=== PATIENT | female | born 1995 | race Caucasian/White ===

== ENCOUNTER 2017-11-24 16:42 | Emergency (ER) | payer OTHER ==
--- NOTE | 2017-11-24 16:45 | PDOC ---
Rapid Medical Evaluation Time Seen by Provider: 11/24/17 16:44 Medical Evaluation: Allergies Allergy/AdvReac Type Severity Reaction Status Date / Time No Known Allergies Allergy Verified 08/23/16 03:01 11/24/17 16:44 The patient presents with a chief complaint of: foot injury I have performed a brief in-person evaluation of this patient. Pertinent physical exam findings: vss, ambulatory I have ordered the following: labs, xray, pain meds The patient will proceed to the ED for further evaluation. 11/24/17 16:47
[2017-11-24] MEDS ORDERED: IBUPROFEN 600 MG TABLET (FP) PO ONE ×2 (16:46→17:14)
[2017-11-24 16:52] VITALS: BP 137/57; PULSE 86; TEMP 98; BMI 33.9
[2017-11-24] MEDS ORDERED: DIPHTH,PERTUSS(ACELL),TET 0.5 ML DISP.SYRIN IM ONE (17:12)
--- NOTE | 2017-11-24 17:19 | PDOC ---
History of Present Illness - General Chief Complaint: Injury Stated Complaint: LACERATION TO TOE Time Seen by Provider: 11/24/17 16:44 History Source: Patient Exam Limitations: No Limitations - History of Present Illness Initial Comments: 11/24/17 17:18 This is a 22-year-old woman without a past medical history of presents to emergency department with right fifth toe pain and laceration status post getting caught on a broken bed. Patient states she was on the bed with some children that were jumping up and down where she heard a crack she was resting with her foot between the mattress and the bedframe. Suddenly the bed shifted positions catching her foot between the frame of the bed. Patient states she does not know her last tetanus shot. Past History - Past Medical History Allergies/Adverse Reactions: Allergies Allergy/AdvReac Type Severity Reaction Status Date / Time No Known Allergies Allergy Verified 11/24/17 16:45 Home Medications: Ambulatory Orders NK [No Known Home Medication] 11/24/17 Asthma: Yes Cancer: No Cardiac Disorders: No COPD: No Diabetes: No HTN: No Psychiatric Problems: Yes (depression) Seizures: No Thyroid Disease: No - Immunization History Immunization Up to Date: Yes - Suicide/Smoking/Psychosocial Hx Smoking Status: Yes Smoking History: Never smoked Have you smoked in the past 12 months: Yes Number of Cigarettes Smoked Daily: 20 Cigars Per Day: 0 Information on smoking cessation initiated: Yes Hx Alcohol Use: No Drug/Substance Use Hx: No Substance Use Type: None Hx Substance Use Treatment: No Review of Systems - Review of Systems Able to Perform ROS?: Yes Is the patient limited Spanish proficient: No Constitutional: No: Symptoms Reported HEENTM: No: Symptoms Reported Respiratory: No: Symptoms reported Cardiac (ROS): No: Symptoms Reported ABD/GI: No: Symptoms Reported : No: Symptoms Reported Musculoskeletal: Yes: See HPI Integumentary: Yes: See HPI Neurological: No: Symptoms reported *Physical Exam - Vital Signs Last Vital Signs Temp Pulse Resp BP Pulse Ox 98.0 F 86 18 137/57 100 11/24/17 16:45 11/24/17 16:45 11/24/17 16:45 11/24/17 16:45 11/24/17 16:45 - Physical Exam General Appearance: Yes: Appropriately Dressed. No: Apparent Distress HEENT: positive: Normal ENT Inspection Neck: positive: Trachea midline, Supple Respiratory/Chest: positive: Lungs Clear, Normal Breath Sounds. negative: Respiratory Distress, Accessory Muscle Use Cardiovascular: positive: Regular Rhythm, Regular Rate. negative: Murmur Gastrointestinal/Abdominal: positive: Normal Bowel Sounds, Soft. negative: Tender Musculoskeletal: positive: Normal Inspection. negative: CVA Tenderness Extremity: positive: Swelling (right fifth toe), Other (6 cm curved superficial laceration to the anterior lateral aspect of the right fifth toe) Integumentary: positive: Other (6 cm curved superficial laceration to the anterior lateral aspect of the right fifth toe) Neurologic: positive: Alert, Normal Response, Motor Strength 5/5 Procedures - Consent Consent obtained: Verbal, From Patient - Laceration/Wound Repair Right Lateral Toe 5th digit Wound Length: 5.0 to 7.5 cm Wound Explored: clean Wound's Depth, Shape: superficial Irrigated w/ Saline: Yes Betadine Prep: Yes Anesthesia: 1% Lidocaine Amount of Anesthetic (ccs): 3 Wound Debrided: minimal Wound Repaired With: Sutures Suture Size/Type: 6:0 Number of Sutures: 5 Layer Closure: No Sterile Dressing Applied: Yes Progress: 11/24/17 18:28 patient tolerated well ED Treatment Course - ADDITIONAL ORDERS Additional order review: Laboratory Results 11/24/17 16:54 Urine HCG, Qual Negative Medical Decision Making - Medical Decision Making 11/24/17 17:21 A/P: 22-year-old female with right fifth toe laceration and pain status post furniture breaking 6 cm curved superficial laceration to the dorsal lateral aspect of the fifth toe Swelling presents to the right fifth toe No crepitus or deformity present on palpation Laceration; soft tissue injury versus fracture Urine test X-ray of right foot Motrin Tetanus shot Lac repair if no fractures are noted 11/24/17 18:28 X-rays read by me: No fracture or dislocation noted. I'll perform laceration repair. See procedure note for details *DC/Admit/Observation/Transfer Diagnosis at time of Disposition: Laceration - Discharge Dispostion Disposition: HOME Condition at time of disposition: Stable Admit: No - Referrals Referrals: Get Bai MD [Primary Care Provider] - - Patient Instructions Additional Instructions: Keep wound dry for the next 24 hours. After the first 24 hours you make wash the wound gently. Do not scrub the wound. You may apply antibiotic ointment to wound 3 times a day. Only apply a thin layer to the wound. Return to have the sutures removed next Friday 12/01 or on 12/04. Return to ER sooner if you experience fevers, redness, increased pain, streaking up the leg, or any other concerns. - Post Discharge Activity
== END 2017-11-24 18:27 | disposition home or self-care (01) ==
LOC: JER 16:42
PROC: 3E0234Z Introduction of Serum, Toxoid and Vaccine into Muscle, Percutaneous Approach (ICD-10-PCS; principal; 2017-11-24)
PROC: 0HQMXZZ Repair Right Foot Skin, External Approach (ICD-10-PCS; 2017-11-24)
DX: S91.114A Laceration without foreign body of right lesser toe(s) without damage to nail, initial encounter (principal); W23.0XXA Caught, crushed, jammed, or pinched between moving objects, initial encounter; Y93.89 Activity, other specified; Y92.032 Bedroom in apartment as the place of occurrence of the external cause; Y99.8 Other external cause status
CPT/HCPCS: 12002; 73630-TC-RT-FY; 84703; 90471; 90715; 99282-25

== ENCOUNTER 2017-12-01 09:57 | Emergency (ER) | payer OTHER ==
[2017-12-01 10:15] VITALS: BP 152/68; PULSE 65; TEMP 98.2; BMI 31.0
--- NOTE | 2017-12-01 10:42 | PDOC ---
Suture Removal/Wound Check HPI - History of Present Illness Chief Complaint: Suture/Staple Removal(Here) Stated Complaint: STAPLE/SUTURE REMOVAL Time Seen by Provider: 12/01/17 10:24 History Source: Yes: Patient Exam Limitations: Yes: No Limitations Treated at: [facility] [place] Date of Last ED visit: 11/24/17 - Previous ED Treatment Tetanus Immunization: Yes: Given at last ED visit - Onset of Previous Treatment Date of Occurence: 11/24/17 Past History - Past Medical History Allergies/Adverse Reactions: Allergies Allergy/AdvReac Type Severity Reaction Status Date / Time No Known Allergies Allergy Verified 12/01/17 10:13 Home Medications: Ambulatory Orders NK [No Known Home Medication] 11/24/17 Asthma: Yes Cancer: No Cardiac Disorders: No COPD: No DVT: No Diabetes: No HTN: No Psychiatric Problems: Yes (depression) Seizures: No Thyroid Disease: No - Immunization History Immunization Up to Date: Yes - Suicide/Smoking/Psychosocial Hx Smoking Status: Yes Smoking History: Current every day smoker Have you smoked in the past 12 months: Yes Number of Cigarettes Smoked Daily: 20 Cigars Per Day: 0 Information on smoking cessation initiated: Yes 'Breaking Loose' booklet given: 12/01/17 Hx Alcohol Use: No Drug/Substance Use Hx: No Substance Use Type: None Hx Substance Use Treatment: No Medical Decision Making - Medical Decision Making A/P: 5 stitches removed from right 5th toe. Margins well approximated. No surrounding erythema or streaking. Sutured skin is necrotic but remains in place. Sensory intact in affected extremity. Patient made aware that necrotic skin will fall of on its own. *DC/Admit/Observation/Transfer Diagnosis at time of Disposition: Encounter for removal of sutures - Discharge Dispostion Disposition: HOME Condition at time of disposition: Good - Referrals Referrals: Get Bai MD [Primary Care Provider] - - Patient Instructions Printed Discharge Instructions: DI for Suture Removal - Post Discharge Activity
== END 2017-12-01 10:49 | disposition home or self-care (01) ==
LOC: JERFT 09:57
DX: Z48.02 Encounter for removal of sutures (principal)
CPT/HCPCS: 99281-25

== ENCOUNTER 2020-02-17 21:06 | Emergency (ER) | payer OTHER ==
[2020-02-17 21:27] VITALS: BP 110/78; PULSE 76; TEMP 99.3; BMI 29.6
[2020-02-17] MEDS ORDERED: ACETAMINOPHEN 500 MG TABLET (FP) PO ONE (23:10)
[2020-02-17] MEDS ORDERED: ACETAMINOPHEN 325 MG TABLET (FP) ONE ×2 (23:17→23:52)
[2020-02-18 00:41] LABS: BASO % 0.4 % (0-2.0); EOS % 1.1 % (0-4.5); HEMATOCRIT 39.4 % (32.4-45.2); HEMOGLOBIN 13.3 GM/dL (10.7-15.3); LYMPH % 31.9 % (8-40); MCH 31.8 pg (25.7-33.7); MCHC 33.6 g/dl (32.0-36.0); MEAN CELL VOLUME 94.6 fl (80-96); MEAN PLT VOLUME 10.3 fl (7.5-11.1); MONO % 5.9 % (3.8-10.2); NEUT % 60.7 % (42.8-82.8); PLATELET COUNT 190 K/MM3 (134-434); RBC 4.17 M/mm3 (3.60-5.2); RDW 13.2 % (11.6-15.6); WHITE BLOOD COUNT 13.4 K/mm3 (4.0-10.0)
[2020-02-18 01:09] LABS: BILIRUBIN,TOTAL 0.6 mg/dL (0.2-1); BLOOD UREA NITROGEN 13.3 mg/dL (7-18); CALCIUM 8.7 mg/dL (8.5-10.1); CREATININE 0.7 mg/dL (0.55-1.3); POTASSIUM 3.9 mmol/L (3.5-5.1); TOT PROT 7.4 g/dl (6.4-8.2)
== END 2020-02-18 02:27 | disposition home or self-care (01) ==
LOC: JER 21:06
DX: N64.4 Mastodynia (principal)
CPT/HCPCS: 36415; 71046-TC-FY; 76817-TC; 80053; 84702; 84703; 85025; 93005; 93010; 99284-25

== ENCOUNTER 2020-02-27 06:56 | Emergency (ER) | payer OTHER ==
[2020-02-27 07:12] VITALS: TEMP 97.8; BMI 29.6
[2020-02-27] MEDS ORDERED: ACETAMINOPHEN 1000 MG/100 ML VIAL (NON FORMULARY) IVPB ONE (08:00)
[2020-02-27] MEDS ORDERED: LACTATED RINGERS SOLUTION 1000 ML INFUS.BAG IV ONE (08:00)
[2020-02-27] MEDS ORDERED: METOCLOPRAMIDE HCL INJECTION 10 MG/2 ML VIAL IVPUSH ONE (08:00)
[2020-02-27] MEDS ORDERED: METOCLOPRAMIDE HCL INJECTION 10 MG/2 ML VIAL ONE (08:10)
[2020-02-27] MEDS ORDERED: ACETAMINOPHEN INJECTION 100 ML IVPB ONE (08:10)
--- NOTE | 2020-02-27 08:18 | PDOC ---
Attending Attestation - Resident Resident Name: Dayron Wood - ED Attending Attestation I have performed the following: I have examined & evaluated the patient, The case was reviewed & discussed with the resident, I agree w/resident's findings & plan, Exceptions are as noted - HPI HPI: 24 yo currently approx 7 WGA based on LMP presenting with nausea, multiple episodes of vomiting followed by throbbing headache this AM. She states the nausea woke her from sleep. She has had similar headaches in the past. - Physicial Exam PE: GENERAL: Awake, alert, and fully oriented, in no acute distress HEAD: No signs of trauma EYES: PERRLA, EOMI, sclera anicteric, conjunctiva clear ENT: Auricles normal inspection, hearing grossly normal, nares patent, oropharynx clear without exudates. Dry mucosa NECK: Normal ROM, supple, no lymphadenopathy, JVD, or masses LUNGS: Breath sounds equal, clear to auscultation bilaterally. No wheezes, and no crackles HEART: Regular rate and rhythm, normal S1 and S2, no murmurs, rubs or gallops ABDOMEN: Soft, nontender, normoactive bowel sounds. No guarding, no rebound. No masses EXTREMITIES: Normal range of motion, no edema. No clubbing or cyanosis. No co rds, erythema, or tenderness NEUROLOGICAL: Cranial nerves II through XII grossly intact. Normal speech, normal gait. Motor and sensation intact SKIN: Warm, dry, normal turgor, no rashes or lesions noted. - Medical Decision Making Pt with multiple episodes of vomiting, no signs of acute abdomen. Will give IV fluids, antiemetics. Discharge - Discharge Information Problems reviewed: Yes Clinical Impression/Diagnosis: Nausea & vomiting Qualifiers: Vomiting type: unspecified Vomiting Intractability: non-intractable Qualified Code(s): R11.2 - Nausea with vomiting, unspecified Condition: Stable Disposition: HOME - Additional Discharge Information Prescriptions: Ondansetron [Zofran *Odt*] 4 mg SL BID #10 od.tablet - Follow up/Referral Referrals: Get Bai MD [Primary Care Provider] - - Patient Discharge Instructions Patient Printed Discharge Instructions: DI for Vomiting -- Adult Additional Instructions: You were seen in the ER for nausea, vomiting. Your symptoms improved with medication. Your urine did not show signs of infection. Be sure to follow up with your studio model as soon as possible, in the next 1-2 days. Return to the ER if you develop high fevers, vision changes, weakness, confusion, chest pain, or trouble breathing. - Post Discharge Activity
--- NOTE | 2020-02-27 08:18 | PDOC ---
History of Present Illness - General Chief Complaint: Nausea/Vomiting Stated Complaint: VOMITING/7WKS Time Seen by Provider: 02/27/20 07:43 History Source: Patient - History of Present Illness Initial Comments: 02/27/20 08:12 24F @ approx 7 weeks gestation (LMP 01/10/20) p/w acute onset nausea, vomiting, headache this AM. She reports waking up with nausea, and x8 [id number] vomiting. She reports headache similar to prior migraines, localized to the R forehead, non-radiating, no tear production, vision changes, or associated weakness. identified in ED last week after presentation for breast pain, has been unable to follow up with student education specialist since then. Past History - Medical History Allergies/Adverse Reactions: Allergies Allergy/AdvReac Type Severity Reaction Status Date / Time No Known Allergies Allergy Verified 02/27/20 07:11 Home Medications: Ambulatory Orders Ondansetron [Zofran *Odt*] 4 mg SL BID #10 od.tablet 02/27/20 Asthma: Yes Cancer: No Cardiac Disorders: No COPD: No DVT: No Diabetes: No HTN: No Psychiatric Problems: Yes (depression) Seizures: No Thyroid Disease: No Other medical history: migraines - Immunization History Immunization Up to Date: Yes - Psycho-Social/Smoking History Smoking Status: Yes Smoking History: Current every day smoker Have you smoked in the past 12 months: Yes Number of Cigarettes Smoked Daily: 20 Cigars Per Day: 0 Information on smoking cessation initiated: No 'Breaking Loose' booklet given: 12/01/17 - Substance Abuse Hx (Audit-C & DAST Scrn) How often the patient has a drink containing alcohol: Never Score: In Men: 4 or > Positive; In Women: 3 or > Positive: 0 Screen Result (Pos requires Nsg. Audit-10AR): Negative Review of Systems - Review of Systems Able to Perform ROS?: Yes Comments:: 02/27/20 09:14 GENERAL/CONSTITUTIONAL: No fever or chills. No weakness. HEAD, EYES, EARS, NOSE AND THROAT: No change in vision. No ear pain or discharge. No sore throat. CARDIOVASCULAR: No chest pain or shortness of breath RESPIRATORY: No cough, wheezing, or hemoptysis. GASTROINTESTINAL: Nausea, vomiting. No diarrhea or constipation. GENITOURINARY: No dysuria, frequency, or change in urination. MUSCULOSKELETAL: No joint or muscle swelling or pain. No neck or back pain. SKIN: No rash NEUROLOGIC: No headache, vertigo, loss of consciousness, or change in strength/sensation. ENDOCRINE: No increased thirst. No abnormal weight change HEMATOLOGIC/LYMPHATIC: No anemia, easy bleeding, or history of blood clots. ALLERGIC/IMMUNOLOGIC: No hives or skin allergy. *Physical Exam - Vital Signs Last Vital Signs Temp Pulse Resp BP Pulse Ox 97.8 F 77 18 126/66 99 02/27/20 07:08 02/27/20 07:08 02/27/20 07:08 02/27/20 07:08 02/27/20 07:08 - Physical Exam 02/27/20 09:16 GENERAL: Awake, alert, and fully oriented, in no acute distress HEAD: No signs of trauma, normocephalic, atraumatic EYES: PERRLA, EOMI, sclera anicteric, conjunctiva clear ENT: Auricles normal inspection, hearing grossly normal, nares patent, oropharynx clear without exudates. Moist mucosa NECK: Normal ROM, supple, no lymphadenopathy, JVD, or masses LUNGS: No distress, speaks full sentences, clear to auscultation bilaterally HEART: Regular rate and rhythm, normal S1 and S2, no murmurs, rubs or gallops, peripheral pulses normal and equal bilaterally. ABDOMEN: Soft, nontender, normoactive bowel sounds. No guarding, no rebound. No masses EXTREMITIES : Normal inspection, Normal range of motion, no edema. No clubbing or cyanosis NEUROLOGICAL: Cranial nerves II through XII grossly intact. Normal speech, normal gait, no focal sensorimotor deficits SKIN: Warm, Dry, normal turgor, no rashes or lesions noted Medical Decision Making - Medical Decision Making 02/27/20 09:12 24F @7 weeks gestation w/hx migraines p/w acute onset n/v/headache, well appearing on exam likely representing hyperemesis gravidarum. Plan: Reglan Ofirmev 1L NS UA Urine culture Dispo: Discharge Discharge - Discharge Information Problems reviewed: Yes Clinical Impression/Diagnosis: Nausea & vomiting Qualifiers: Vomiting type: unspecified Vomiting Intractability: non-intractable Qualified Code(s): R11.2 - Nausea with vomiting, unspecified Condition: Stable Disposition: HOME - Admission No - Additional Discharge Information Prescriptions: Ondansetron [Zofran *Odt*] 4 mg SL BID #10 od.tablet - Follow up/Referral Referrals: eGt Bai MD [Primary Care Provider] - - Patient Discharge Instructions Patient Printed Discharge Instructions: DI for Vomiting -- Adult Additional Instructions: You were seen in the ER for nausea, vomiting. Your symptoms improved with medication. Your urine did not show signs of infection. Be sure to follow up with your student education specialist as soon as possible, in the next 1-2 days. Return to the ER if you develop high fevers, vision changes, weakness, confusion, chest pain, or trouble breathing. - Post Discharge Activity
[2020-02-27 09:28] LABS: EPI CELLS >36 /uL (0-25.1); HYALINE CASTS 5 /uL (0-3.1); URINE APPEARANCE CLOUDY; URINE BACTERIA 4388 /uL (0-1359); URINE BILIRUBIN NEGATIVE (NEGATIVE); URINE COLOR YELLOW; URINE GLUCOSE (UA) NEGATIVE (NEGATIVE); URINE KETONE 3+ (NEGATIVE); URINE LEUK ESTERASE NEGATIVE (NEGATIVE); URINE NITRITE NEGATIVE (NEGATIVE); URINE PROTEIN 2+ (NEGATIVE); URINE RBC 12 /uL (0-23.9)
[2020-02-27 10:05] VITALS: BP 115/68; PULSE 75
[2020-02-27 21:00] LABS: URINE WBC 168 /uL (0-25.8)
== END 2020-02-27 10:05 | disposition home or self-care (01) ==
LOC: JER 06:56
PROC: 3E033NZ Introduction of Analgesics, Hypnotics, Sedatives into Peripheral Vein, Percutaneous Approach (ICD-10-PCS; principal; 2020-02-27)
PROC: 3E033GC Introduction of Other Therapeutic Substance into Peripheral Vein, Percutaneous Approach (ICD-10-PCS; 2020-02-27)
DX: R11.2 Nausea with vomiting, unspecified (principal)
CPT/HCPCS: 81003; 87077; 87086; 99284-25; J0131

== ENCOUNTER 2020-10-13 00:21 | Emergency (ER) | payer OTHER ==
[2020-10-13 00:45] VITALS: BMI 40.7
[2020-10-13 05:11] VITALS: BP 116/80; PULSE 95; TEMP 98.5
== END 2020-10-13 05:00 | disposition home or self-care (01) ==
LOC: JER 00:21
DX: R22.31 Localized swelling, mass and lump, right upper limb (principal)
CPT/HCPCS: 93971-TC; 99284-25

== ENCOUNTER 2020-10-17 09:25 | Inpatient (IN) | payer OTHER ==
[2020-10-17 10:06] LABS: HEMOGLOBIN 12.5 GM/dL (10.7-15.3); WHITE BLOOD COUNT 11.1 K/mm3 (4.0-10.0)
[2020-10-17 10:07] LABS: BASO % 0.6 % (0-2.0); EOS % 1.4 % (0-4.5); MCHC 34.6 g/dl (32.0-36.0); MEAN CELL VOLUME 92.3 fl (80-96); MONO % 6.5 % (3.8-10.2); NEUT % 70.5 % (42.8-82.8); PLATELET COUNT 167 K/MM3 (134-434); RDW 14.7 % (11.6-15.6)
[2020-10-17 10:13] LABS: INR 0.89 (0.83-1.09); PROTHROMBIN TIME (PATIENT) 10.8 SEC (9.7-13.0)
[2020-10-17 10:15] LABS: ACTIVATED PTT 26.6 SECONDS (25.2-36.5)
[2020-10-17 10:37] LABS: CALCIUM 8.8 mg/dL (8.5-10.1)
[2020-10-17 10:39] LABS: BLOOD UREA NITROGEN 11.5 mg/dL (7-18)
[2020-10-17 10:42] LABS: CREATININE 0.5 mg/dL (0.55-1.3)
[2020-10-17 12:41] VITALS: BMI 43.9
[2020-10-17] MEDS ORDERED: CITRIC ACID/SODIUM CITRATE 30 ML UNIT-DOSE CUP PO ONE (17:01)
[2020-10-17] MEDS ORDERED: LACTATED RINGERS SOLUTION 1000 ML INFUS.BAG IV SCH (17:15)
[2020-10-17] MEDS ORDERED: OXYTOCIN 20 UNITS in 0.9% NS 20 UNIT/1,000 ML INFUS.BAG IV ONE (17:20)
[2020-10-17] MEDS ORDERED: ONDANSETRON 4 MG/2 ML VIAL IVPUSH PRN (17:25)
[2020-10-17] MEDS ORDERED: morphine SULFATE/PF 0.5 MG/ML (2cc Syringe - QUVA) ONE (17:32)
[2020-10-17] MEDS ORDERED: PHENYLEPHRINE HCL 10 MG/1 ML SINGLE DOSE VIAL ONE (17:34)
[2020-10-17] MEDS ORDERED: ceFAZolin SODIUM 1 GM VIAL ONE (17:46)
[2020-10-17] MEDS ORDERED: OXYTOCIN 10 UNITS/ML VIAL ONE (17:57)
[2020-10-17] MEDS ORDERED: ONDANSETRON 4 MG/2 ML VIAL ONE (18:08)
[2020-10-17 18:52] LABS: CORD HCO3 22.2 mmHg (20-29); CORD PCO2 58.1 mmHg (30-78); CORD pH 7.201 (7.14-7.44)
[2020-10-17 18:53] LABS: CORD BASE EXCESS -4.8 mmol/L (0-2); CORD HCO3 22.3 mmHg (20-29); CORD PCO2 48.2 mmHg (30-78); CORD pH 7.283 (7.14-7.44)
[2020-10-17] MEDS ORDERED: SIMETHICONE 80 MG TAB.CHEW (FP) PO PRN (19:14)
[2020-10-17] MEDS ORDERED: SENNOSIDES/DOCUSATE COMBO (SENNA PLUS) TABLET (UD) PO PRN (19:14)
[2020-10-17] MEDS ORDERED: oxyCODONE HCL 5 MG TABLET PO PRN (19:14)
[2020-10-17] MEDS ORDERED: METHYLERGONOVINE MALEATE 0.2 MG/1 ML AMP IM PRN (19:14)
[2020-10-17] MEDS: IBUPROFEN 800 MG/8 ML IJ IVPB PRN (21:07)
[2020-10-18] MEDS: OXYTOCIN 20 UNITS in 0.9% NS 20 UNIT/1,000 ML INFUS.BAG IV SCH ×2 (00:30→21:41)
[2020-10-18] MEDS: CEFAZOLIN 1 GM/D5W 1 GM/50 ML BAG IVPB SCH ×3 (01:18→17:26)
[2020-10-18] MEDS: IBUPROFEN 800 MG/8 ML IJ IVPB PRN (08:42)
[2020-10-18 08:57] LABS: BASO % 0.5 % (0-2.0); EOS % 0.8 % (0-4.5); HEMATOCRIT 35.8 % (32.4-45.2); HEMOGLOBIN 12.1 GM/dL (10.7-15.3); LYMPH % 16.4 % (8-40); MCH 31.5 pg (25.7-33.7); MCHC 33.7 g/dl (32.0-36.0); MEAN CELL VOLUME 93.5 fl (80-96); MEAN PLT VOLUME 11.6 fl (7.5-11.1); MONO % 5.2 % (3.8-10.2); NEUT % 77.1 % (42.8-82.8); PLATELET COUNT 141 K/MM3 (134-434); RBC 3.83 M/mm3 (3.60-5.2); RDW 14.8 % (11.6-15.6); WHITE BLOOD COUNT 12.9 K/mm3 (4.0-10.0)
[2020-10-18] MEDS: PRENATAL VITAMINS W/ FOLIC ACID TABLET (FP) PO SCH (09:50)
[2020-10-18] MEDS: ENOXAPARIN NA (PORCINE) 40 MG/0.4 ML DISP.SYRIN SQ SCH (09:50)
[2020-10-18] MEDS: ACETAMINOPHEN 325 MG TABLET (FP) PO PRN ×2 (17:25→20:57)
[2020-10-18] MEDS: IBUPROFEN 600 MG TABLET (FP) PO PRN (17:25)
[2020-10-18] MEDS ORDERED: BISACODYL 10 MG SUPP.RECT RC PRN (19:14)
[2020-10-18] MEDS: FERROUS SO4 325 MG TABLET (FP) PO SCH (21:41)
[2020-10-19] MEDS: ACETAMINOPHEN 325 MG TABLET (FP) PO PRN (06:42)
[2020-10-19] MEDS: IBUPROFEN 600 MG TABLET (FP) PO PRN (06:42)
[2020-10-19] MEDS: ENOXAPARIN NA (PORCINE) 40 MG/0.4 ML DISP.SYRIN SQ SCH (09:51)
[2020-10-19] MEDS: PRENATAL VITAMINS W/ FOLIC ACID TABLET (FP) PO SCH (09:51)
[2020-10-19] MEDS: FERROUS SO4 325 MG TABLET (FP) PO SCH (09:51)
[2020-10-19 11:15] VITALS: BP 114/63; PULSE 84; TEMP 97.7
== END 2020-10-19 15:45 | disposition home or self-care (01) | DRG 540 ==
LOC: JDEL 09:25 → JLDR 11:15 → J3W 20:39
PROVIDERS: ADMIT Obstetrics & Gynecology; ATTEND Obstetrics & Gynecology
PROC: 10D00Z1 Extraction of Products of Conception, Low, Open Approach (ICD-10-PCS; principal; 2020-10-17)
DX: O34.219 Maternal care for unspecified type scar from previous cesarean delivery (principal); O48.0 Post-term pregnancy; O76 Abnormality in fetal heart rate and rhythm complicating labor and delivery; O99.214 Obesity complicating childbirth; E66.01 Morbid (severe) obesity due to excess calories; Z3A.40 40 weeks gestation of pregnancy; Z37.0 Single live birth
CPT/HCPCS: 36415; 36600; 80048; 82803; 85025; 85610; 85730; 86780; 86850; 86900; 86901; 94010; C9803; U0003

== ENCOUNTER 2021-03-06 22:26 | Emergency (ER) | payer OTHER ==
[2021-03-06 22:33] VITALS: BP 107/64; PULSE 86; TEMP 97.8; BMI 37.9
== END 2021-03-06 23:31 | disposition home or self-care (01) ==
LOC: JER 22:26
DX: S63.502A Unspecified sprain of left wrist, initial encounter (principal); S46.912A Strain of unspecified muscle, fascia and tendon at shoulder and upper arm level, left arm, initial encounter
CPT/HCPCS: 73110-TC-LT-FY; 99283-25

== ENCOUNTER 2021-08-19 10:39 | Emergency (ER) | payer OTHER ==
[2021-08-19 10:54] VITALS: BP 125/69; PULSE 94; TEMP 98.5; BMI 35.9
[2021-08-20 21:07] LABS: SARS-CoV-2 NAA Detected (Not Detected)
== END 2021-08-19 13:03 | disposition home or self-care (01) ==
LOC: JER 10:39
DX: R11.0 Nausea (principal)
CPT/HCPCS: 87804; 99283-25; C9803; U0003; U0005

== ENCOUNTER 2022-05-15 11:30 | Emergency (ER) | payer OTHER ==
[2022-05-15 12:23] VITALS: BP 121/77; PULSE 65; RESP 20; TEMP 98.6; BMI 33.3
[2022-05-15] MEDS ORDERED: ACETAMINOPHEN 1000 MG/100 ML BAG IVPB ONE (13:22)
[2022-05-15] MEDS ORDERED: SODIUM CHLORIDE 0.9% 500 ML INFUS.BAG IV ONE (13:22)
[2022-05-15] MEDS ORDERED: KETOROLAC TROMETHAMINE 30 MG/1 ML VIAL IVPUSH ONE (13:22)
[2022-05-15] MEDS ORDERED: METOCLOPRAMIDE HCL INJECTION 10 MG/2 ML VIAL IVPUSH ONE (13:22)
[2022-05-15] MEDS ORDERED: METOCLOPRAMIDE HCL INJECTION 10 MG/2 ML VIAL ONE (14:10)
[2022-05-15] MEDS ORDERED: ACETAMINOPHEN INJECTION 100 ML IVPB ONE (14:11)
[2022-05-15] MEDS ORDERED: KETOROLAC TROMETHAMINE 30 MG/1 ML VIAL ONE (14:11)
[2022-05-15 14:53] LABS: BASO % 0.3 % (0-2.0); EOS % 0.4 % (0-4.5); HEMATOCRIT 39.4 % (32.4-45.2); HEMOGLOBIN 13.5 GM/dL (10.7-15.3); MCH 32.1 pg (25.7-33.7); MCHC 34.3 g/dl (32.0-36.0); MEAN CELL VOLUME 93.3 fl (80-96); MEAN PLT VOLUME 10.1 fl (7.5-11.1); MONO % 3.1 % (3.8-10.2); NEUT % 81.2 % (42.8-82.8); PLATELET COUNT 180 10^3/uL (134-434); RBC 4.22 M/mm3 (3.60-5.2); RDW 13.6 % (11.6-15.6); WHITE BLOOD COUNT 11.9 K/mm3 (4.0-10.0)
[2022-05-15 15:26] LABS: ALBUMIN 3.9 g/dl (3.4-5.0); BLOOD UREA NITROGEN 10.4 mg/dL (7-18); CALCIUM 9.2 mg/dL (8.5-10.1)
[2022-05-15 15:27] LABS: CREATININE 0.6 mg/dL (0.55-1.3)
[2022-05-15 15:29] LABS: BILIRUBIN,TOTAL 0.8 mg/dL (0.2-1); TOT PROT 7.5 g/dl (6.4-8.2)
== END 2022-05-15 15:56 | disposition home or self-care (01) ==
LOC: JER 11:30
PROC: 3E033GC Introduction of Other Therapeutic Substance into Peripheral Vein, Percutaneous Approach (ICD-10-PCS; principal; 2022-05-15)
DX: G43.009 Migraine without aura, not intractable, without status migrainosus (principal)
CPT/HCPCS: 36415; 80053; 85025; 99284-25

== ENCOUNTER 2022-10-16 12:38 | Emergency (ER) | payer OTHER ==
[2022-10-16 13:07] VITALS: BP 123/78; PULSE 61; RESP 16; TEMP 98.3; BMI 33.3
[2022-10-16] MEDS ORDERED: METOCLOPRAMIDE HCL INJECTION 10 MG/2 ML VIAL IVPUSH ONE (13:25)
[2022-10-16] MEDS ORDERED: SODIUM CHLORIDE 1,000 ML IV STA (13:25)
[2022-10-16] MEDS ORDERED: ACETAMINOPHEN 1000 MG/100 ML BAG IVPB ONE (13:25)
[2022-10-16] MEDS ORDERED: METOCLOPRAMIDE HCL INJECTION 10 MG/2 ML VIAL ONE (13:37)
[2022-10-16] MEDS ORDERED: ACETAMINOPHEN INJECTION 100 ML IVPB ONE (13:37)
[2022-10-16 14:18] LABS: URINE APPEARANCE CLEAR; URINE BILIRUBIN NEGATIVE (NEGATIVE); URINE COLOR YELLOW; URINE GLUCOSE (UA) NEGATIVE (NEGATIVE); URINE KETONE NEGATIVE (NEGATIVE); URINE LEUK ESTERASE NEGATIVE (NEGATIVE); URINE NITRITE NEGATIVE (NEGATIVE); URINE PROTEIN NEGATIVE (NEGATIVE); URINE UROBILINOGEN 0.2 mg/dL (0.2-1.0)
[2022-10-16 14:21] LABS: HCG,QUALITATIVE URINE Negative
[2022-10-16] MEDS ORDERED: KETOROLAC TROMETHAMINE 30 MG/1 ML VIAL IVPUSH ONE (14:30)
[2022-10-16] MEDS ORDERED: KETOROLAC TROMETHAMINE 30 MG/1 ML VIAL ONE (14:39)
== END 2022-10-16 15:32 | disposition home or self-care (01) ==
LOC: JER 12:38
PROC: 3E033GC Introduction of Other Therapeutic Substance into Peripheral Vein, Percutaneous Approach (ICD-10-PCS; principal; 2022-10-16)
DX: G44.89 Other headache syndrome (principal)
CPT/HCPCS: 81003; 84703; 87086; 99284-25

== ENCOUNTER 2023-03-31 16:57 | Emergency (ER) | payer OTHER ==
[2023-03-31 17:19] VITALS: BP 108/65; PULSE 109; RESP 16; TEMP 98.2; BMI 33.9
== END 2023-03-31 19:59 | disposition home or self-care (01) ==
LOC: JER 16:57
DX: N64.4 Mastodynia (principal); N63.0 Unspecified lump in unspecified breast
CPT/HCPCS: 76642-TC-LT; 99284-25

== ENCOUNTER 2023-07-14 15:55 | Emergency (ER) | payer OTHER ==
[2023-07-14 16:07] VITALS: BP 122/77; PULSE 89; RESP 20; TEMP 98.3; BMI 33.7
[2023-07-14 17:58] LABS: EPI CELLS 9 /uL (0-25.1); HYALINE CASTS 0 /uL (0-3.1); URINE APPEARANCE CLEAR; URINE BACTERIA 95 /uL (0-1359); URINE BILIRUBIN NEGATIVE (NEGATIVE); URINE COLOR YELLOW; URINE GLUCOSE (UA) NEGATIVE (NEGATIVE); URINE KETONE NEGATIVE (NEGATIVE); URINE LEUK ESTERASE NEGATIVE (NEGATIVE); URINE NITRITE NEGATIVE (NEGATIVE); URINE PROTEIN NEGATIVE (NEGATIVE); URINE RBC 11 /uL (0-23.9); URINE UROBILINOGEN 0.2 mg/dL (0.2-1.0); URINE WBC 3 /uL (0-25.8)
[2023-07-14 17:59] LABS: HCG,QUALITATIVE URINE Positive
[2023-07-14 18:06] LABS: BASO % 0.5 % (0-2.0); HEMATOCRIT 37.6 % (32.4-45.2); HEMOGLOBIN 12.9 GM/dL (10.7-15.3); LYMPH % 45.6 % (8-40); MCH 27.9 pg (25.7-33.7); MCHC 34.4 g/dl (32.0-36.0); MEAN CELL VOLUME 81.3 fl (80-96); MEAN PLT VOLUME 9.7 fl (7.5-11.1); MONO % 6.3 % (3.8-10.2); NEUT % 43.6 % (42.8-82.8); PLATELET COUNT 205 10^3/uL (134-434); RBC 4.63 M/mm3 (3.60-5.2); RDW 13.7 % (11.6-15.6); WHITE BLOOD COUNT 10.7 K/mm3 (4.0-10.0)
[2023-07-14 18:43] LABS: POTASSIUM 3.8 mmol/L (3.5-5.1)
[2023-07-14 18:45] LABS: ALBUMIN 3.4 g/dl (3.4-5.0); BLOOD UREA NITROGEN 10.8 mg/dL (7-18); CALCIUM 8.4 mg/dL (8.5-10.1)
[2023-07-14 18:48] LABS: CREATININE 0.5 mg/dL (0.55-1.3)
[2023-07-14 18:49] LABS: BILIRUBIN,TOTAL 0.2 mg/dL (0.2-1); TOT PROT 6.9 g/dl (6.4-8.2)
== END 2023-07-14 18:56 | disposition home or self-care (01) ==
LOC: JER 15:55
DX: O20.9 Hemorrhage in early pregnancy, unspecified (principal); Z3A.01 Less than 8 weeks gestation of pregnancy
CPT/HCPCS: 36415; 80053; 81003; 84702; 84703; 85025; 86850; 86900; 86901; 87086; 99283-25